=== PATIENT | male | born 1995 | race Two or more races ===

== ENCOUNTER 2021-05-23 00:23 | Emergency (ER) | payer OTHER ==
[~2021-05-23] VITALS: Ht 175.3 cm; Wt 65.8 kg
[2021-05-23] MEDS ORDERED: ZITHROMAX500 MG PO (04:48)
[2021-05-23] MEDS ORDERED: ZYNCOF 20-400120 ML PO (04:48)
== END 2021-05-23 05:04 ==
LOC: ER 00:23
DX: R06.02 Shortness of breath (principal); R05.9 Cough, unspecified